=== PATIENT | female | born 1980 | race Caucasian/White ===

== ENCOUNTER 2019-01-03 21:25 | Emergency (ER) | payer OTHER ==
[~2019-01-03] VITALS: Ht 165.1 cm; Wt 86.2 kg
[2019-01-03 22:19] VITALS: BP 147/72
[2019-01-03] MEDS ORDERED: ACETAMINOPHEN EXTRA STRENGTH 500 MG TAB PO ONE (22:30)
[2019-01-03] MEDS ORDERED: ACETAMINOPHEN EXTRA STRENGTH 500 MG TAB ONE (22:33)
[2019-01-03 22:35] LABS: HEMATOCRIT 38.5 % (36-48); HEMOGLOBIN 12.8 g/dL (12.0-16.0); MEAN CORPUSCULAR HEMOGLOBIN 27 pg (27-31); MEAN CORPUSCULAR HGB CONC 33 g/dL (33-37); MEAN CORPUSCULAR VOLUME 80.9 fL (80-94); PLATELET COUNT (AUTO) 346 K/uL (140-450); RED BLOOD CELL COUNT(AUTO) 4.76 MIL/uL (4.20-5.40)
[2019-01-03 22:45] LABS: ANION GAP 15.3 (8-16); CREATININE 0.7 mg/dL (0.6-1.3); POTASSIUM 3.3 mmol/L (3.5-5.1)
[2019-01-03 23:00] LABS: LYMPHOCYTES % (MANUAL) 4 % (20-46); MONOCYTES % (MANUAL) 7 % (5-12)
--- NOTE | 2019-01-03 23:04 | NUR ---
PT BROUGHT TO BED 11 VIA WHEELCHAIR
--- NOTE | 2019-01-03 23:05 | NUR ---
PATIENT PRESENTS ER WITH C/O N/V AND BODY ACHES;PT STATES HE HAS BEEN CONSTIPATED X 3 DAYS. PT STATED SHE HAD A FEVER PRIOR TO ER 101.0. PT WAS GIVEN TYLENOL IN TRIAGE. PT TOLERATED WELL. PT LMP WAS . PT STATES SHE IS 10 WEEKS . PT IS .PT IS A/OX4. PATIENT STATES PAIN OF 7/10 AT THIS TIME; VSS; PATIENT POSITIONED FOR COMFORT; HOB ELEVATED; BEDRAILS UP X2; BED DOWN. ER MD MADE AWARE OF PT STATUS.
[2019-01-03 23:50] LABS: APPEARANCE,URINE CLOUDY (CLEAR); BILIRUBIN,URINE NEGATIVE (NEGATIVE); BLOOD, URINE NEGATIVE (NEGATIVE); COLOR,URINE YELLOW (YELLOW); LEUKOCYTE ESTERASE ,URINE TRACE (NEGATIVE); NITRITE, URINE NEGATIVE (NEGATIVE); PH,URINE 5.5 (5.0-9.0); UGLUCOSE NEGATIVE (NEGATIVE)
[2019-01-04 00:11] LABS: RBC,URINE 0-5 (RARE) /HPF (0-5)
--- NOTE | 2019-01-04 00:11 | NUR ---
FLU SWAB COLLECTED, SENT TO LAB
[2019-01-04 00:12] LABS: HYALINE CASTS, URINE 0-10 /LPF (None Seen); URINE AMORPHOUS URATE 3+ /HPF (None Seen)
--- NOTE | 2019-01-04 00:30 | NUR ---
PT ANBUALTED TO THER RESTROOM. PT TOLERATED WELL.
[2019-01-04 01:10] VITALS: BP 145/74
--- NOTE | 2019-01-04 01:10 | NUR ---
Patient discharged with v/s stable. Written and verbal after care instructions given and explained. Patient alert, oriented and verbalized understanding of instructions. Ambulatory with steady gait. All questions addressed prior to discharge. ID band removed. Patient advised to follow up with PMD. Rx of GENNA HOWARD WAS given. Patient educated on indication of medication including possible reaction and side effects. Opportunity to ask questions provided and answered.
== END 2019-01-04 01:10 | disposition home or self-care (01) ==
LOC: MED 21:25
DX: O23.41 Unspecified infection of urinary tract in pregnancy, first trimester (principal); O98.511 Other viral diseases complicating pregnancy, first trimester; J10.1 Influenza due to other identified influenza virus with other respiratory manifestations; Z3A.08 8 weeks gestation of pregnancy
CPT/HCPCS: 36415; 76801; 80048; 81001; 81025; 84702; 85025; 86900; 86901; 87086; 87804; 99284; Q0092